=== PATIENT | female | born 1975 | race Caucasian/White ===

== ENCOUNTER 2023-07-16 12:10 | Emergency (ER) | payer OTHER, SELFPAY ==
[2023-07-16 12:14] VITALS: BP 112/75; PULSE 89; RESP 18; TEMP 36.6; O2SAT 100; BMI 21.5
--- NOTE | 2023-07-16 12:32 | ED.GENADULT ---
HPI - General Adult General Date Seen: 07/16/23 Chief complaint: Headache/Migraine Stated complaint: Headache Time Seen by Provider: 07/16/23 12:12 Source: patient Mode of arrival: ambulatory Limitations: no limitations History of Present Illness HPI narrative: Patient is a 47-year-old woman who return from [place] yesterday, she says she was in a city just [place] of [facility] for 12 days. Her is with her here but was not with her in [place]. She had onset of fever overnight with a temperature of 102? reported along with chills. She continues to report chills, this is her primary symptom at this time. She had a headache earlier although it is improved now. She says she also had some abdominal pain which was sharp and in her lower abdomen but this has resolved as well. She has not had any rashes, denies diarrhea. Has not had cough. Did do a COVID test up a time of onset of symptoms overnight which was negative. She has mild body aches but no severe joint pains or swelling. Not aware of any specific insect bites or stings, though she notes that there were a lot of mosquitos and no screens. No vomiting. She reports no significant medical history, denies drug alcohol or tobacco use. Related Data Home Medications Medication Instructions Recorded Confirmed levothyroxine 137 mcg tablet 137 mcg PO DAILY 07/16/23 07/16/23 Allergies Allergy/AdvReac Type Severity Reaction Status Date / Time amoxicillin Allergy Verified 07/16/23 12:16 Review of Systems Status of ROS: Reports: 10 or more systems reviewed and unremarkable except as noted in History and below PFSH [facility] Social History Smoking Status: Never smoker Do you use any of these nicotine containing products: None Second hand tobacco smoke exposure: No How often do you have a drink containing alcohol: 2-4 times a month How many standard drinks containing alcohol do you have on a typical day: 1 or 2 How often do you have six or more drinks on one occasion: Never AUDIT-C Alcohol total score: 2 Non-prescribed substance use: denies use service: No Exam Narrative: Exam Narrative: Vital signs as noted above. In general, an alert, nontoxic woman. Head: Normocephalic, atraumatic. Eyes: Pupils are equal reactive. Extraocular movements are full. Conjunctivae are normal. ENT: Mucous membranes are moist. Throat is normal. Neck: Supple without lymphadenopathy. Heart: Regular rate and rhythm. No murmur or rub. Lungs: Clear bilaterally. No increased work of breathing, crackles or wheezes. Abdomen: Soft and nontender. No organomegaly. Extremities: Well perfused. No edema. No calf tenderness. Pulses intact. Neurologic: Patient is alert and oriented to person and place. Speech is fluent. Face is symmetric. Moves all extremities equally. Affect: Normal. Skin: Warm and dry. Well perfused. No rash or jaundice. Const: Vital Signs, click to edit/add: Vital Signs - 24 hr 07/16/23 12:14 07/16/23 13:22 07/16/23 14:11 Temperature 97.8 F 99.7 F H Pulse Rate [Right Pulse Oximeter] 89 72 Respiratory Rate 18 20 Blood Pressure [Ri ght Upper Arm] 112/75 124/66 Pulse Oximetry 100 100 Oxygen Delivery Me thod Room Air Room Air Documenting provider has reviewed patient's vital signs: yes Course Course Hospital Course: Following initial evaluation, an IV was established and she was given a L of normal saline as well as Toradol 15 mg IV. She feels improved, did have a little bit of an elevated temp later in her stay of 99.7. Labs show a white blood cell count slightly low at 3.5, normal hemoglobin and normal platelet count. CRP very minimally elevated at 2.5, sed rate was normal. Electrolytes are unremarkable, potassium was 3.5. LFTs are entirely normal. UA is negative, 0-2 red cells and 0-2 white cells, few squames few bacteria. Our COVID and influenza here are negative. Diagnostic considerations include bacterial causes of fever such as urinary tract infection, pyelonephritis, pneumonia, meningitis. She does not have any respiratory complaints has clear lungs and normal O2 sats. She does not have any meningeal signs and headache is mild at this time. White blood cell count is depressed suggesting more likely a viral cause. COVID is negative but with only a few hours of symptoms discussed that that could be a false negative in it might be worthwhile to retest in a few days. Mosquito borne illnesses such as Zika, Chikunguya or Dengue are a consideration given her recent travel to [place], but she does not have any significant joint pains or rash and labs are not suggestive at this time. Discussed that there is no specific treatment for those illnesses that if she is not improving over the next 3-5 days testing for those could be entertained. Malaria does not appear to be endemic in the area of [place] where she was. She is nontoxic in appearance, I think it is reasonable to let her go. Blood cultures and urine culture are pending. Discussed that if she has worsening symptoms or new symptoms such as vomiting, significant abdominal pain, severe headache or neck pain, unusual rashes etcetera, she should return to the emergency department for repeat evaluation. In the meantime, I recommended Tylenol over ibuprofen given the remote possibility of Dengue. Primary care followup if fever persists beyond 3-5 days. Vital Signs Vital signs: Initial Vital Signs Temperature 97.8 F 07/16/23 12:14 Temperature Source Temporal Artery Scan 07/16/23 12:14 Pulse Rate 89 07/16/23 12:14 Respiratory Rate 18 07/16/23 12:14 Blood Pressure 112/75 07/16/23 12:14 Blood Pressure Mean 87 07/16/23 12:14 Blood Pressure Position Sitting 07/16/23 12:14 Pulse Oximetry 100 07/16/23 12:14 Oxygen Delivery Method Room Air 07/16/23 12:14 Vital Signs Temperature 97.8 F 07/16/23 12:14 Pulse Rate 89 07/16/23 12:14 Respiratory Rate 18 07/16/23 12:14 Blood Pressure 112/75 07/16/23 12:14 Pulse Oximetry 100 07/16/23 12:14 Oxygen Delivery Method Room Air 07/16/23 12:14 Temperature 99.7 F H 07/16/23 14:11 Pulse Rate 72 07/16/23 13:22 Respiratory Rate 20 07/16/23 13:22 Blood Pressure 124/66 07/16/23 13:22 Pulse Oximetry 100 07/16/23 13:22 Oxygen Delivery Method Room Air 07/16/23 13:22 Medical Decision Making Lab Data Labs: Lab Results 07/16/23 07/16/23 07/16/23 Range/Units 12:27 13:02 13:07 WBC 3.51 L (4.50-11.00) K/uL RBC 4.77 (4.00-5.20) m/uL Hgb 14.5 (12.0-16.0) gm/dL Hct 43.6 (33.0-51.0) % MCV 91 (80-100) fL MCH 30 (26-34) pg MCHC 33 (32-36) gm/dL RDW Coeff of Dejah 12.8 (11.5-15.5) % Plt Count 172 (140-440) K/uL Neut % (Auto) 75.2 H (42.0-72.0) % Lymph % (Auto) 14.5 L (20-44) % Scott % (Auto) 9.1 (0.0-11.0) % Eos % (Auto) 0.3 (0.0-7.0) % Baso % (Auto) 0.6 (0.0-3.0) % Neut # (Auto) 2.60 (1.7-7.0) K/uL Lymph # (Auto) 0.50 L (0.90-2.90) K/uL Scott # (Auto) 0.30 (0.00-0.90) K/UL Eos # (Auto) 0.00 (0.00-0.50) K/uL Baso # (Auto) 0.00 (0.00-0.30) K/uL Abs Immat Gran (auto) 0.00 (0.00-0.30) K/uL Imm/Tot Granulo (auto) 0.3 % Diff Slide Review Acceptable Review (Acceptable) ESR < 2 L (2-20) mm/hr Sodium 135 (135-149) mmol/L Potassium 3.5 L (3.6-5.1) mmol/L Chloride 103 (96-114) mmol/L Carbon Dioxide 23 (20-32) mmol/L BUN 9 (5-24) mg/dL Creatinine 1.0 (0.5-1.5) mg/dL Estimated Creat Clear 73.09 Estimated GFR 69 ml/min Glucose 85 (60-115) mg/dL Lactate 1.3 (0.5-1.9) mmol/L Calcium 9.0 (8.4-10.6) mg/dL Total Bilirubin 0.6 (0.1-1.5) mg/dL Direct Bilirubin 0.0 (0.0-0.5) mg/dL AST 35 (12-35) U/L ALT 28 (4-35) U/L Alkaline Phosphatase 63 (40-150) U/L C-Reactive Protein 2.5 H (0.5-1.0) mg/dL Total Protein 8.0 (6.0-8.3) g/dL Albumin 4.6 (3.3-5.0) g/dL Urine Color Yellow (Yellow) Urine Appearance Clear (Clear) Urine pH 6.0 (5.0-8.5) Ur Specific [place] 1.010 (1.000-1.030) Urine Protein 1+ A (Negative) Urine Glucose (UA) Negative (Negative) Urine Ketones Negative (Negative) Urine Blood Trace-lysed A (Negative) Urine Nitrite Negative (Negative) Urine Bilirubin Negative (Negative) Urine Urobilinogen 0.2 (0.2-1.0) Ur Leukocyte Esterase Negative (Negative) Urine RBC 0-2 (0-2) Urine WBC 0-2 (0-5) Ur Squamous Epith Cells Few (None-Few) Amorphous Sediment Few A (None) Urine Bacteria Few A (None) SARS-CoV-2 (PCR) Negative SARS-CoV-2 (Negative) Influenza Type A (PCR) Negative PCR FLU A (Negative) Influenza Type B (PCR) Negative PCR FLU B (Negative) RSV (PCR) Negative PCR RSV (Negative) Discharge Plan Discharge Clinical Impression: Fever Patient Disposition: Home, Self-Care Condition: Improved Instructions: Fever in Adults (ED) Additional Instructions: Tylenol as needed for fever and aches. Illness is likely viral, could consider repeat COVID testing in a few days. Testing for mosquito borne illnesses such as Zika or Chikunguya could be considered if not improving over the next week or so, though there is no specific treatment for these aside from supportive care. Your labs today do not suggest a probable bacterial cause for symptoms, but if you are feeling worse, develop new symptoms such as vomiting, significant abdominal pain, cough or difficulty breathing, unusual rash, return for re-evaluation. Primary care follow-up if fever persists beyond 5 days. Prescriptions: No Action levothyroxine 137 mcg tablet 137 mcg PO DAILY Follow Up/Referrals: Lily Cherry DO [Primary Care Provider] - Stand Alone Forms: [facility] Info Instructions
[2023-07-16] MEDS: 0.9 % SODIUM CHLORIDE 1000 ml 1,000 ML IV (13:09)
[2023-07-16 13:15] LABS: Lactate Sepsis w/Reflex* 1.3 mmol/L (0.5-1.9)
[2023-07-16] MEDS: ONDANSETRON 2 MG/ML inj 4 MG IVP (13:15)
[2023-07-16 13:22] VITALS: BP 124/66; PULSE 72; RESP 20; O2SAT 100
[2023-07-16 13:33] LABS: Basophils Percent Auto 0.6 % (0.0-3.0); Eosinophils Percent Auto 0.3 % (0.0-7.0); Hematocrit 43.6 % (33.0-51.0); Hemoglobin* 14.5 gm/dL (12.0-16.0); Immature Granulocytes Pct Auto 0.3 %; Lymphocytes Percent Auto 14.5 % (20-44); Mean Corpuscular HGB Conc 33 gm/dL (32-36); Mean Corpuscular Hemoglobin 30 pg (26-34); Mean Corpuscular Volume 91 fL (80-100); Monocytes Percent Auto 9.1 % (0.0-11.0); Neutrophils Percent Auto 75.2 % (42.0-72.0); Platelet Count* 172 K/uL (140-440); RDW Coefficient of Variation % 12.8 % (11.5-15.5); Red Blood Count 4.77 m/uL (4.00-5.20); White Blood Count* 3.51 K/uL (4.50-11.00)
[2023-07-16 13:34] LABS: Slide Review Reflex Yes
[2023-07-16 13:35] LABS: Albumin* 4.6 g/dL (3.3-5.0); Chloride* 103 mmol/L (96-114)
[2023-07-16 13:36] LABS: Potassium* 3.5 mmol/L (3.6-5.1); Sodium* 135 mmol/L (135-149)
[2023-07-16 13:38] LABS: Est. Creatinine Clearance* 73.09; Estimated Glomerular Filt Rate 69 ml/min
[2023-07-16 13:39] LABS: Alanine Aminotransferase* 28 U/L (4-35); Alkaline Phosphatase* 63 U/L (40-150); Aspartate Amino Transferase* 35 U/L (12-35); Bilirubin Total* 0.6 mg/dL (0.1-1.5); Blood Urea Nitrogen* 9 mg/dL (5-24); Carbon Dioxide* 23 mmol/L (20-32); Glucose* 85 mg/dL (60-115)
[2023-07-16 13:40] LABS: Slide Review Acceptable Review (Acceptable)
[2023-07-16 13:42] LABS: C Reactive Protein* 2.5 mg/dL (0.5-1.0)
[2023-07-16 13:56] LABS: Erythrocyte SedimentationRate* < 2 mm/hr (2-20)
[2023-07-16 14:05] LABS: PCR FLU A Negative PCR FLU A (Negative); PCR FLU B Negative PCR FLU B (Negative); PCR RSV Negative PCR RSV (Negative)
[2023-07-16] MEDS: KETOROLAC 15 MG/ML inj IVP (14:07)
[2023-07-16 14:11] VITALS: TEMP 37.6
[2023-07-16 14:13] LABS: SARS PCR* Negative SARS-CoV-2 (Negative)
[2023-07-16 14:24] LABS: Appearance Urine Clear (Clear); Bilirubin Urine Negative (Negative); Blood Urine Trace-lysed (Negative); Color Urine Yellow (Yellow); Glucose Urine Negative (Negative); Ketones Urine Negative (Negative); Leukocyte Esterase Urine Negative (Negative); Nitrite Urine Negative (Negative); Protein Urine 1+ (Negative); Urobilinogen Urine 0.2 (0.2-1.0)
[2023-07-16 14:28] LABS: RBC Urine 0-2 (0-2); WBC Urine 0-2 (0-5)
[2023-07-16 14:29] LABS: Amorphous Sediment Urine Few; Bacteria Urine Few; Squamous Epithelial Cell Urine Few (None-Few)
--- NOTE | 2023-07-16 15:03 | ED.NURSE ---
did call [facility] to make sure that her iv has been removed. message left to call back.
--- NOTE | 2023-07-16 15:49 | ED.NURSE ---
iv was removed.
== END 2023-07-16 14:56 | disposition home or self-care (01) ==
PROVIDERS: Emergency Provider Emergency Medicine; PCP Family Medicine
DX: R50.9 Fever, unspecified (principal)
CPT/HCPCS: 36415; 80048; 80076; 81001; 83605; 85025; 85651; 86140; 87040; 87086; 87631; 96374; 96375; 99283; 99284; J1885; J2405; J7030

== ENCOUNTER 2024-06-20 10:15 | Outpatient (CLI) | payer BC, SELFPAY | END 2024-06-20 10:16 | disposition home or self-care (01) | LOC: NFLDUCREF 10:16 | PROVIDERS: PCP Family Medicine; Visit Provider Nurse Practitioner Family | DX: G44.1 Vascular headache, not elsewhere classified (principal); S20.162A Insect bite (nonvenomous) of breast, left breast, initial encounter; W57.XXXA Bitten or stung by nonvenomous insect and other nonvenomous arthropods, initial encounter | CPT/HCPCS: 86618 ==

== ENCOUNTER 2024-07-29 15:36 | Emergency (ER) | payer OTHER, BC, SELFPAY ==
[2024-07-29 15:39] VITALS: BP 116/66; PULSE 80; RESP 18; TEMP 37.1; O2SAT 97; BMI 22.2
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
--- OUTSIDE RECORDS SUMMARY | 2024-07-29 16:25 | XMS_ITS ---
Author Organization [facility] Address [address] [place] [address] Care Team Providers Care Meat Market Manager Name Role Phone Unavailable Unavailable Unavailable Surgery Details Not on file Complications Check Surgery Details section. Procedure Estimated Blood Loss Check Surgery Details section. Procedure Findings Check Surgery Details section. Procedure Specimens Taken Check Surgery Details section.
--- OUTSIDE RECORDS SUMMARY | 2024-07-29 16:25 | XMS_ITS | Clinical Summary ---
Author Organization [facility] Address [address] [place] [address] Care Team Providers Care Civil Engineering Teacher Name Role Phone Elsewhere, Pcp Primary Care Provider Unavailabl e Source Comments Patient records contain information from all sites at [facility]. For routine questions regarding patient records, call [phone] during business hours, M-F 8:00 AM - 5:00 PM Central Time. Record requests for emergency care only can be directed to [phone] at any time.[facility] Allergies Active Allergy Reactions Criticality Noted Date Comments Amoxicillin GI intolerance 07/29/2009 Gluten Diarrhea 10/21/2014 Tetanus And Diphther. Tox (Pf) Other (see comments) Medium 07/07/2018 Fever, bodyaches, chills, nausea Medications Medication Sig Dispensed Refills Start Date End Date Status calcium carbonate-vitamin D3 500 mg-3.125 mcg (125 unit) per tablet Take 1 tablet by mouth daily. 03/12/2010 Active levothyroxine (SYNTHROID, LEVOTHROID) 137 mcg tablet Take 137 mcg by mouth. 01/26/2023 Active LORazepam (ATIVAN) 0.5 mg tablet Take 1 tablet up to twice daily as needed for anxiety. 12/10/2022 Active magnesium 30 mg tablet Magnesium tablet - patient unsure of strength. 08/03/2019 Active rizatriptan GAMMA FACILITIES OPERATOR (MAXALT-GAMMA FACILITIES OPERATOR) 10 mg disintegrating tablet DISSOLVE 1 TABLET ON THE TONGUE EVERY 2 HOURS NEEDED. MAX DOSE 3/24 HOURS AT MINIMUM 2 HOURS APART 05/10/2023 Active tiZANidine (ZANAFLEX) 4 mg tablet Take 4 mg by mouth every 8 (eight) hours as needed. 06/03/2023 Active VITAMIN B COMPLEX ORAL Take 1 capsule by mouth daily. 03/03/2019 Active zolpidem (AMBIEN) 5 mg tablet Take 2.5-5 mg by mouth at bedtime as needed. 08/03/2019 Active acetaminophen (TYLENOL) 500 mg tablet Take 500 mg by mouth every 6 (six) hours as needed for pain. Active Active Problems Problem Noted Date Diagnosed Date Fever Dengue 07/22/2023 Migraine With Aura Not Intra ctable Without Status Migrainosus 01/08/2021 Overview (07/19/2023): visual disturbance with flickering and wavy lines. right posterior eye typical for her Non Celiac Gluten Sensitivity 10/24/2014 Headache Unspecified 12/01/2013 Hypothyroidism 07/29/2009 Pain Epigastric 07/29/2009 Social History Tobacco Use Types Packs/Day Years Used Date Smoking Tobacco: Never Smokeless Tobacco: Never Tobacco Cessation:Counseling Given: Not Answered Alcohol Use Standard Drinks/Week Comments Yes 0 (1 standard drink = 0.6 oz pur e alcohol) ocassional Nutrition Answer Date Recorded Nutrition: EVOO Fat Source Unknown 09/07 Nutrition: Servings of Fruits/Vegetables per Day Not on file 09/07/2021 Dental Answer Date Recorded Dental: Regular Dentist Unknown 09/07/20 21 Sex and Gender Information Value Date Recorded Sex Assigned at Not on file Gender Identity Not on file Sexual Orientation Not on file Last Filed Vital Signs Vital Sign Reading Time Taken Comments Blood Pressure 105/66 07/24/2023 2:39 PM CDT Pulse 62 07/24/2023 2:39 PM CDT Temperature 36.2 ??C (97.2 ??F) 07/24/2023 2:39 PM CD T Respiratory Rate 16 07/24/2023 2:39 PM CDT Oxygen Saturation 98% 07/24/2023 2:39 PM CDT Inhaled Oxygen Concentration - - Weight 63.8 kg (140 lb 10.5 oz) 07/22/2023 7:36 PM CDT Height 177.8 cm (5' 10) 07/22/2023 7:36 PM CDT Body Mass Index 20.18 07/22/2023 7:36 PM CDT Plan of Treatment Health Maintenance Due Date Last Done Comments CT Colonography 1973 Cervical Cancer Screening 1973 Cologuard 1973 Colonoscopy 1973 Colorectal Cancer Screening 1973 FIT 1973 HIV Screening 1973 Hepatitis C Screening 1973 Mammogram 1973 Hepatitis B Vaccines (1 of 3 - 19+ 3-dose series) 1992 Zoster Vaccines (1 of 2) 2023 Depression Screening (Annual PHQ-2) 11/28/2023 Thyroid Stimulating Hormone (TSH) test for thyroid function 07/19/2024 07/19/2023, 01/01/2022, 04/20/2021, Additional history exists Influenza Vaccine (#1) 2024 , 12/10/2022, 08/11/2020 Lipid (Cholesterol) Screening 08/11/2025 08/11/2020 Fasting Glucose for Diabetes Screening 07/24/2026 07/24/2023, 07/23/2023, 07/22/2023, Additional history exists DTaP,Tdap,and Td Vaccines (3 - Td or Tdap) 06/12/2028 06/12/2018, 12/19/2007 COVID-19 Vaccine Completed 12/06/2023, , 11/04/2021, Additional history exists Pneumococcal vaccine (0-64 years) Aged Out No longer eligible based on patient's age to complete this topic Procedures Procedure Name Priority Date/Time Associated Diagnosis Comments COMPREHENSIVE METABOLIC PANEL, S/P Routine 07/24/2023 6:39 AM CDT THYROID-STIMULATING HORMONE-SENSITIVE (S-TSH) STAT 07/19/2023 9:37 PM CDT from Last 3 Months or Most Recently Relevant to Health Maintenance Results * (ABNORMAL) Comprehensive Metabolic Panel (07/24/2023 6:39 AM CDT) Potassium, S 3.8 3.6 - 5.2 mmol/L 07/24/2023 8:27 AM CDT DTL Sodium, S 140 135 - 145 mmol/L 07/24/2023 8:27 AM CDT DTL Chloride, S 104 98 - 107 mmol/L 07/24/2023 8:27 AM CDT DTL Bicarbonate, S 23 22 - 29 mmol/L 07/24/2023 8:27 AM CDT DTL Anion Gap 13 7 - 15 07/24/2023 8:27 AM CDT DTL BUN (Blood Urea Nitrogen), S 6 6 - 21 mg/dL 07/24/2023 8:27 AM CDT DTL Creatinine 0.68 0.59 - 1.04 mg/dL 07/24/2023 8:27 AM CDT DTL Estimated GFR (eGFR) >90 >=60 mL/min/BS A 07/24/2023 8:27 AM CDT DTL Comment: Estimated GFR calculated using the 2020 CKD_EPI creatinine equation. Calcium, Total, S 9.0 8.6 - 10.0 mg/dL 07/24/2023 8:27 AM CDT DTL Glucose, S 95 70 - 140 mg/dL 07/24/2023 8:27 AM CDT DTL Protein, Total, S 6.7 6.3 - 7.9 g/dL 07/24/2023 8:27 AM CDT DTL Albumin, S 3.7 3.5 - 5.0 g/dL 07/24/2023 8:27 AM CDT DTL Aspartate Aminotransferase (AST), S 377(H) 8 - 43 U/L 07/24/2023 8:27 AM CDT DTL Alkaline Phosphatase, S 65 35 - 104 U/L 07/24/2023 8:27 AM CDT DTL Alanine Aminotransferase (ALT), S 200(H) 7 - 45 U/L 07/24/2023 8:27 AM CDT DTL Bilirubin, Total, S 0.3 <=1.2 mg/dL 07/24/2023 8:27 AM CDT DTL Blood (Blood, Venous) 07/24/2023 6:39 AM CDT 07/24/2023 8:07 AM CDT Candi Levine M.D. LAB BLOOD ADD-ON [facility] [address] [place] [address], [place] DTL [facility] [address] [place] [address] * (ABNORMAL) S-TSH (Thyroid-Stimulating Hormone - Sensitive) (07/19/2023 9:37 PM CDT) TSH, Sensitive 0.2(L) 0.3 - 4.2 mIU/L 07/19/2023 10:56 PM CDT DTL Blood (Blood, Venous) 07/19/2023 9:37 PM CDT 07/19/2023 10:24 PM CDT Michael Rodriguez M.D. LAB BLOOD ADD-ON [facility] [address] [place] [address], [facility] [address] [place] [address] from Last 3 Months or Most Recently Relevant to Health Maintenance Advance Directives For more information, please contact: [phone] * Full Code (Latest Code Status on File) Date Activated Date Inactivated Comments 07/22/2023 9:11 PM 07/24/2023 5:37 PM Question Answer Comments Full Code: Discussed * Full Code Date Activated Date Inactivated Comments 07/22/2023 9:11 PM 07/22/2023 9:11 PM Question Answer Comments Full Code: Discussed Care Teams Civil Engineering Teacher Relationship Specialty Start Date End Date Elsewhere, Pcp PCP - General Internal Medicine 07/19/23
--- OUTSIDE RECORDS SUMMARY | 2024-07-29 16:25 | XMS_ITS | Clinical Summary ---
Author Organization [employer] [facility] Address [place], [place] [address] Care Team Providers Care Metal Turner Name Role Phone Lily Cherry DO Primary Care Provider [phone] Allergies Active Allergy Reactions Criticality Noted Date Comments Amoxicillin Stomach Upset 07/29/2009 Gluten Diarrhea 10/21/2014 Tetanus And Diphther. Tox (Pf) Fever Medium 07/07/2018 Fever, bodyaches, chills, nausea Medications Medication Sig Dispensed Refills Start Date End Date Status Calcium-Cholecalcif antonella, D3, (CALCIUM 500 + D, D3,) 500-125 mg-unit Tab Take by mouth. 0 0 Active b complex vitamins (VITAMIN B COMPLEX) capsule Take 1 capsule by mouth once daily. 0 9 Active Magnesium 30 mg tablet Magnesium tablet - patient unsure of strength. 0 9 Active zolpidem (AMBIEN) 5 mg tabletIndications:S hift work sleep disorder Take 0.5-1 tablets by mouth at bedtime if needed for Sleep. 10 tablet 2 9 Active LORazepam (ATIVAN) 0.5 mg tabIndications:Soci al anxiety disorder Take 1 tablet up to twice daily as needed for anxiety. 20 Tablet 3 Active acetaminophen (TYLENOL EXTRA STRGTH) 500 mg tablet Take 500 mg by mouth every 6 hours if needed. Active hydrOXYzine HCL (ATARAX) 25 mg tabletIndications:A nxiety Take 1 Tablet (25 mg) by mouth every 6 hours if needed for Itching. 25 Tablet 3 Active tiZANidine (ZANAFLEX) 4 mg tabletIndications:M igraine with aura and without status migrainosus, not intractable TAKE 1 TABLET(4 MG) BY MOUTH EVERY 8 HOURS NEEDED FOR MUSCLE SPASM 30 Tablet 4 Active Soy Isoflavone 40 mg tablet Take 1 Tablet (40 mg) by mouth two times daily. 4 Active multivitamin (MVI) tablet Take 1 Tablet by mouth once daily. 4 Active rhubarb root extract (ESTROVEN CMPLT MENOPAUSE RLF ORAL) Take by mouth. Active ondansetron (ZOFRAN ODT) 4 mg disintegrating tabletIndications:N ausea Place 1 Tablet (4 mg) on the tongue every 8 hours if needed for Nausea/Vomiti ng. 25 Tablet 4 Active levothyroxine (SYNTHROID) 137 mcg tabletIndications:A cquired hypothyroidism TAKE 1 TABLET(137 MCG) BY MOUTH BEFORE BREAKFAST 30 Tablet 4 Active rizatriptan (MAXALT PROCESSING TECHNICIAN) 10 mg disintegrating tabletIndications:M igraine with aura and without status migrainosus, not intractable DISSOLVE 1 TABLET ON THE TONGUE EVERY 2 HOURS NEEDED. MAX DOSE 3 PER 24 HOURS. GIVE AT LEAST 2 HOURS APART 10 Tablet 2 4 Active triamcinolone (ARISTOCORT) 0.1 % ointmentIndications :Bee sting, accidental or unintentional, initial encounter Apply to the affected area sparingly 2 -3 times a day x 14 days then as needed, pat on. Do not use on face, genitals or children. 30 g 3 07/11/20 24 Discontinued(*Me d complete/Regimen complete/Level of care change) rizatriptan (MAXALT PROCESSING TECHNICIAN) 10 mg disintegrating tabletIndications:M igraine with aura and without status migrainosus, not intractable DISSOLVE 1 TABLET ON THE TONGUE EVERY 2 HOURS NEEDED. MAX DOSE 3/24. 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 right posterior eye typical for her visual disturbance with flickering and wavy lines. right posterior eye typical for her visual disturbance with flickering and wavy lines. right posterior eye typical for her visual disturbance with flickering and wavy lines. right posterior eye typical for her Non-celiac gluten sensitivity 10/24/2014 Family history of brain aneurysm 12/01/2013 Overview: Mother (42, bled) and ?grandmother (42, stroke, not known if hemorrhagic/aneurysm but likely given age), had one MRA? That was normal 2004, told if she had aneurysm it would show up then, did not recommend repeat Chronic headaches 12/01/2013 Epigastric pain 07/29/2009 Unspecified hypothyroidism 07/29/2009 Resolved Problems Problem Noted Date Diagnosed Date Resolved Date , high-risk 06/14/2011 014 Encounters Date Type Department Care Team Description 07/11/2024 8:10 AM CDT Office Visit [facility] [address] [place] [address] Lily Cherry, Results (CT head results/) 07/11/2024 Travel 07/08/2024 Travel 07/05/2024 11:55 AM CDT Office Visit [facility] [address] [place] [address] Flores José PA Infectious Disease 07/05/2024 Travel 07/02/2024 Refill [facility] [address] [place] [address] Lily Cherry DO Refill Request (Rizatriptan) 07/02/2024 Refill [facility] [address] [place] [address] Lily Cherry DO Refill Request (Rizatriptan) 07/01/2024 Refill [facility] [address] [place] [address] Lily Cherry DO Refill Request (Levothyroxine) 06/27/2024 3:40 PM CDT Telemedicine [facility] [address] [place] [phone] Ria Virk, МАРИЯ Telehealth (on Doxy for Lyme, nausea, no vitals. ) 06/27/2024 Travel 06/26/2024 11:25 AM CDT Office Visit [facility] [address] [place] [address] Tc Rodriguez DO Results (Discuss results - needing to see a neurologist? ) 06/26/2024 Travel 06/18/2024 4:30 PM CDT Ancillary Procedure [facility] [address] [facility] [address] [place] [address] 06/18/2024 4:00 PM CDT Ancillary Procedure [facility] [address] [facility] [address] [place] [address] 06/18/2024 Travel 06/12/2024 1:00 PM CDT Office Visit [facility] [address] [facility] [address] [place] [address] Dwight García MD CV Vascular New (Ref from PCP (fam hx of aneurysms)) 06/12/2024 Travel from Last 3 Months Immunizations Name Administration Dates Next Due COVID-19 vaccine (Moderna 100mcg/0.5mL) PF MDV 01/21/2021,12/24/2020 COVID-19 vaccine (Pfizer-Bio NTech 30mcg/0.3mL) 12YO+ BIVALENT PF, MDV 12/10/2022 COVID-19 vaccine (Pfizer-BioNTech 30mcg/0.3mL) P F, MDV 11/04/2021 Influenza, IIV4 12/10/2022,08/11/2020 Tdap 06/12/2018,12/19/2007 Family History Medical History Relation Name Comments Cancer Father d92 pancreas ca ncer Cancer Mother cervical Other Mother brain anyrisum Other Sister 4 celiac 1/2 sist er Other Sister 5 alopecia, migra antoinette, 1/2 sister Psychiatric illness Sister 6 illness unknown at this time 1/2 sister Cancer-breast No Family History Relation Name Status Comments Father Mother Alive Sister 1 Alive Sister 2 Alive Sister 3 Alive Sister 4 Sister 5 Sister 6 Social History Tobacco Use Types Packs/Day Years Used Date Smoking Tobacco: Never Smokeless Tobacco: Never Tobacco Cessation:Counseling Given: Yes Alcohol Use Standard Drinks/Week Comments Yes 0 (1 standard drink = 0.6 oz pur e alcohol) 1-2 drinks weekly PHQ-2 Answer Date Recorded PHQ-2 TOTAL SCORE 0 12/10/2022 Social Connections Answer Date Recorded Frequency of Communication with Friends and Fami ly 0 03/30/2024 Financial Resource Strain Answer Date R ecorded Difficulty of Paying Living Expenses 3 03/30/2024 Difficulty of Paying Living Expenses Not on file 03/30/2024 Food Insecurity Answer Date Recorded Worried About Running Out of Food in the Last Ye ar 1 03/30/2024 Transportation Needs Answer Date Record ed Lack of Transportation (Medical) 1 03/30/2024 Housing Stability Answer Date Recorded Unable to Pay for Housing in the Last Year 1 03/30/2024 Sex and Gender Information Value Date Recorded Sex Assigned at Not on file Gender Identity Not on file Sexual Orientation Not on file Obstetrics History Para Term AB IAB SAB Ectopic Multiple Livin g Live Births 3 2 2 0 0 0 0 0 0 0 Date Outcome GA Total Labor Labor/2nd/3rd Weight Sex Type Anes PTL Jeanne A1 A5 Name Clin Term Term Comments:System Genera kathryn. Please review and update details. Last Filed Vital Signs Vital Sign Reading Time Taken Comments Blood Pressure 106/68 07/11/2024 8:11 AM CDT Pulse 73 07/11/2024 8:11 AM CDT Temperature 36.7 ??C (98 ??F) 03/30/2024 2:20 PM CDT Respiratory Rate 16 09/11/2022 1:11 PM CDT Oxygen Saturation 96% 07/11/2024 8:11 AM CDT Inhaled Oxygen Concentration - - Weight 67.1 kg (148 lb) 07/11/2024 8:11 AM CDT Height 176.5 cm (5' 9.5) 06/12/2024 12:49 PM CD T Body Mass Index 21.54 06/12/2024 12:49 PM CDT Plan of Treatment Upcoming Encounters Date Type Department Care Team (Late st Contact Info) Description 08/10/2024 2:15 PM CDT Office Visit [facility] [address] [place] [address] Lily Cherry DO [address] [place] [address] 09/25/2024 8:30 AM CDT Office Visit [facility] [phone] Arben Sanders, PhD, LP [phone] Health Maintenance Due Date Last Done Comments Hepatitis C screening for age 18-79 1991 Colonoscopy through age 75 2018 Zoster (shingles) series for age 50+ (1 of 2) 2023 Depression screening for age 12+ 12/10/2023 12/10/2022, 01/01/2022, 08/12/2020, Additional history exists Mammogram for age 45-75 06/01/2024 06/01/2023, 03/19 Influenza for age 50-64 07/29/2024 12/10/2022, 08/11 BMI (ht and wt on same day) for age 18+ 06/12/2025 06/12/2024, 01/01/2022, 06/04/2021, Additional history exists Lipids for age 45-75 08/11/2025 08/11/2020, 10/15/20 15 Pap test for age 21-65 08/11/2025 0, 08/11/2020, 01/22/2011 Tetanus booster 06/12/2028 06/12/2018, 12/19/2007 HIV for age 15-65 Completed 01/22/2011 Tdap Completed 06/12/2018, 12/19/2007 COVID-19 vaccine series Completed 12/06/19, 12/10/2022, 11/04/2021, Additional history exists Pneumococcal series for age 6-64 Aged Out No longer eligible based on patient's age to complete this topic Procedures Procedure Name Priority Date/Time Associated Diagnosis Comments CT CHEST ABDOMEN PELVIS W Routine 06/18/2024 4:47 PM CDT Family hx of aortic aneurysm Family history of brain aneurysm CT ANGIO HEAD AND NECK CAROTID Routine 06/18/2024 4:46 PM CDT Family hx of aortic aneurysm Family history of brain aneurysm XR MAMMO BILAT SCREENING Routine 06/01/2023 8:16 AM CDT Visit for screening mammogram LIPID PANEL W REFLEX MEASURED LDL Routine 08/11/2020 12:27 PM CDT Screening cholesterol level MANUFACTURING OPERATIONS MANAGER THIN PREP PAP SCREEN IMAGED Routine 08/11/2020 11:30 AM CDT Screening for malignant neoplasm of cervix ANTI HIV 1/2 Routine 01/22/2011 2:55 PM ECOSYSTEM ECOLOGY PROFESSOR Supervision of other normal from Last 3 Months or Most Recently Relevant to Health Maintenance Results * CT CHEST ABDOMEN PELVIS W (06/18/2024 4:47 PM CDT) Anatomical Region Laterality Modality Abdomen, Pelvis, AORTA, LIVER, SPLEEN, CHEST Computed Tomography 06/20/2024 10:1 1 AM CDT Impressions 06/20/2024 10:11 AM CDT 1. Normal caliber aorta. No aneurysm. 2. Normal chest abdomen pelvis CT. Please note that all CT scans at this facility use dose modulation, iterative reconstruction, and/or weight-based dosing when appropriate to reduce radiation dose to as low as reasonably achievable. Dictated by Aric Dickens MD @ 06/20/2024 10:11:41 AM (Electronically Signed) Narrative 06/20/2024 10:11 AM CDT For Patients: ??As a result of the Cures Act, medical imaging exams and procedure reports are released immediately into your electronic medical record. ??You may view this report before your referring provider. ??If you have questions, please contact your health care provider. INDICATION: Family history of aortic aneurysm, family history of brain aneurysm TECHNIQUE: CT chest, abdomen and pelvis acquired with 50 mL Omnipaque 350 IV contrast. COMPARISON: None. FINDINGS: CHEST: Cardiovascular structures: Heart size is normal. Thoracic aorta and main pulmonary artery are normal in caliber. ? Mediastinum and lizzie: No mass or adenopathy. ?? Lungs and pleura: Lungs and pleural spaces are clear. No suspicious nodules, infiltrates, or effusions. ?? Chest wall and axilla: No mass or adenopathy. ?? Bones: No suspicious bone lesions. ??Unremarkable for age. ?? ABDOMEN AND PELVIS: Liver: Unremarkable. ?? Gallbladder and bile ducts: Unremarkable. ?? Pancreas: Unremarkable. ?? Spleen: Unremarkable. ?? Adrenal glands: Unremarkable. ?? Kidneys: Unremarkable. ?? GI tract: Unremarkable. ?? Vascular structures: Minimal aortic atherosclerosis. No aortic aneurysm. Patent mesenteric arteries Lymph nodes: Unremarkable. ?? Miscellaneous: Unremarkable. ??No free air or significant free fluid. ?? Pelvic Organs: Unremarkable. ?? Bones: No suspicious bone lesions. ??Unremarkable for age. ?? Procedure Note Aric Dickens MD - 06/20/2024 For Patients: As a result of the Cures Act, medical imagingexams and procedure reports are released immediately into your electronicmedical record. You may view this report before your referring provider.If you have questions, please contact your health care provider. INDICATION: Family history of aortic aneurysm, family history of brain aneurysm TECHNIQUE: CT chest, abdomen and pelvis acquired with 50 mL Omnipaque 350 IVcontrast. COMPARISON: None. FINDINGS: CHEST: Cardiovascular structures: Heart size is normal. Thoracic aorta and mainpulmonary artery are normal in caliber. Mediastinum and lizzie: No mass or adenopathy. Lungs and pleura: Lungs and pleural spaces are clear. No suspiciousnodules, infiltrates, or effusions. Chest wall and axilla: No mass or adenopathy. Bones: No suspicious bone lesions. Unremarkable for age. ABDOMEN AND PELVIS: Liver: Unremarkable. Gallbladder and bile ducts: Unremarkable. Pancreas: Unremarkable. Spleen: Unremarkable. Adrenal glands: Unremarkable. Kidneys: Unremarkable. GI tract: Unremarkable. Vascular structures: Minimal aortic atherosclerosis. No aortic aneurysm.Patent mesenteric arteries Lymph nodes: Unremarkable. Miscellaneous: Unremarkable. No free air or significant free fluid. Pelvic Organs: Unremarkable. Bones: No suspicious bone lesions. Unremarkable for age. IMPRESSION: 1. Normal caliber aorta. No aneurysm. 2. Normal chest abdomen pelvis CT. Please note that all CT scans at this facility use dose modulation,iterative reconstruction, and/or weight-based dosing when appropriate toreduce radiation dose to as low as reasonably achievable. Dictated by Aric Dickens MD @ 06/20/2024 10:11:41 AM (Electronically Signed) Dwight García MD CT * CT ANGIO HEAD AND NECK CAROTID (06/18/2024 4:46 PM CDT) Anatomical Region Laterality Modality BRAIN, NECK Computed Tomogra phy 06/19/2024 9:21 AM CDT Addenda Addendum by Lul Bravo MD on 06/19/2024 11:14 AM CDT For Patients: ??As a result of the Cures Act, medical imaging exams and procedure reports are released immediately into your electronic medical record. ??You may view this report before your referring provider. ?? If you have questions, please contact your health care provider. CT HEAD DATE: 06/18/2024 CLINICAL HISTORY: Patient with family history of brain aneurysms. TECHNIQUE: Standard CT scanning of the head was performed. COMPARISON: None. FINDINGS: There is no intracranial hemorrhage. There is no territorial infarction. There are mild microangiopathic changes. There is diffuse parenchymal volume loss. There is no mass effect or midline shift. The calvarium is unremarkable. The orbits are unremarkable. The paranasal sinuses are unremarkable. The mastoid air cells are unremarkable. The soft tissues are unremarkable. IMPRESSION: 1. No intracranial hemorrhage or territorial infarction. 2. Mild microangiopathic changes and diffuse parenchymal volume loss. Please note that all CT scans at this facility use dose modulation, iterative reconstruction, and/or weight-based dosing when appropriate to reduce radiation dose to as low as reasonably achievable. Dictated by: Lul Bravo MD @ 06/19/2024 11:14:50 (Electronically Signed) Addendum by Lul Bravo MD on 06/19/2024 10:57 AM CDT For Patients: ??As a result of the Cures Act, medical imaging exams and procedure reports are released immediately into your electronic medical record. ??You may view this report before your referring provider. ?? If you have questions, please contact your health care provider. DATE: 06/18/2024 CLINICAL HISTORY: Patient with family history of brain aneurysms. TECHNIQUE: Standard helical CT image acquisition through the intracranial circulation following intravenous administration of contrast material with bolus tracking. 2D and 3D MIP images for post-processing were performed and interpreted on an independent workstation and 3D images were permanently archived. COMPARISON: CT same day. FINDINGS: There is no cerebral aneurysm or large vessel occlusion. The right internal carotid artery is normal. The right middle cerebral artery and its branches are normal. The right anterior cerebral artery and its branches are normal. The left internal carotid artery is normal. The left middle cerebral artery and its branches are normal. The left anterior cerebral artery and its branches are normal. The anterior communicating artery is well visualized and appears normal. The right vertebral artery and PICA are normal. The left vertebral artery and PICA are normal. The right vertebral artery is dominant. The basilar artery is patent and appears normal. The right posterior cerebral artery is normal. The left posterior cerebral artery is normal. The visualized venous structures are patent. IMPRESSION: Patent proximal intracranial vasculature without intracranial aneurysms. Please note that all CT scans at this facility use dose modulation, iterative reconstruction, and/or weight-based dosing when appropriate to reduce radiation dose to as low as reasonably achievable. Dictated by Lul Bravo MD @ 06/19/2024 10:57:19 AM (Electronically Signed) Impressions 06/19/2024 10:53 AM CDT Patent cervical vasculature. Please note that all CT scans at this facility use dose modulation, iterative reconstruction, and/or weight-based dosing when appropriate to reduce radiation dose to as low as reasonably achievable. Dictated by Lul Bravo MD @ 06/19/2024 10:53:47 AM (Electronically Signed) Narrative 06/19/2024 10:53 AM CDT For Patients: ??As a result of the Cures Act, medical imaging exams and procedure reports are released immediately into your electronic medical record. ??You may view this report before your referring provider. ??If you have questions, please contact your health care provider. DATE: 06/18/2024 CLINICAL HISTORY: Patient with family history of brain aneurysms. TECHNIQUE: Standard helical CT image acquisition of the neck up to the skull base after bolus intravenous contrast enhancement. 2D and 3D MIP images for post-processing were performed and interpreted on an independent workstation and 3D images were permanently archived. COMPARISON: CT same day. FINDINGS: The origins of the great vessels from the aortic arch are patent. The origin of the right vertebral artery is patent. The origin of the left vertebral artery is patent. The common carotid arteries are patent. There is no stenosis at the origin of the right internal carotid artery. There is no stenosis at the origin of the left internal carotid artery. The rest of the cervical segments of the internal carotid arteries are patent up to the skull base. The right vertebral artery is dominant. The cervical segments of the vertebral arteries are patent up to the skull base. The visualized lung apices are unremarkable. The thyroid gland is unremarkable. The soft tissues of the neck are unremarkable. There are degenerative changes in the cervical spine. Procedure Note Lul Bravo MD - 06/19/2024 For Patients: As a result of the Cures Act, medical imagingexams and procedure reports are released immediately into your electronicmedical record. You may view this report before your referring provider.If you have questions, please contact your health care provider. DATE: 06/18/2024 CLINICAL HISTORY: Patient with family history of brain aneurysms. TECHNIQUE: Standard helical CT image acquisition of the neck up to the skull baseafter bolus intravenous contrast enhancement. 2D and 3D MIP images forpost-processing were performed and interpreted on an independentworkstation and 3D images were permanently archived. COMPARISON: CT same day. FINDINGS: The origins of the great vessels from the aortic arch are patent. Theorigin of the right vertebral artery is patent. The origin of the leftvertebral artery is patent. The common carotid arteries are patent. There is no stenosis at the origin of the right internal carotid artery. There is no stenosis at the origin of the left internal carotid artery. The rest of the cervical segments of the internal carotid arteries arepatent up to the skull base. The right vertebral artery is dominant. The cervical segments of thevertebral arteries are patent up to the skull base. The visualized lung apices are unremarkable. The thyroid gland is unremarkable. The soft tissues of the neck are unremarkable. There are degenerative changes in the cervical spine. IMPRESSION: Patent cervical vasculature. Please note that all CT scans at this facility use dose modulation,iterative reconstruction, and/or weight-based dosing when appropriate toreduce radiation dose to as low as reasonably achievable. Dictated by Lul Bravo MD @ 06/19/2024 10:53:47 AM (Electronically Signed) Dwight García MD CT * XR MAMMO BILAT SCREENING (06/01/2023 8:16 AM CDT) Anatomical Region Laterality Modality BREASTS, Breast Left, Breast Right Bilateral Mammography Impressions 06/01/2023 3:56 PM CDT ??There is no radiographic evidence for malignancy. ??Recommend annual mammograms. MAMMOGRAM ASSESSMENT: ??ACR 1 Negative PATIENTS: You will also receive a letter with your examination results in an easy to read format. ??If you have questions about your results, please contact your referring provider. Narrative 06/01/2023 3:56 PM CDT For Patients: As a result of the Century Cures Act, medical imaging exams and procedure reports are released immediately into your electronic medical record. You may view this report before your referring provider. If you have questions, please contact your health care provider. XR MAMMO BILAT SCREENING [[id number]] CLINICAL HISTORY: ??This is an asymptomatic 47 y.o. patient. INDICATION FOR EXAM: Mammogram Screening. TECHNIQUE: CC & MLO views were obtained. ??This study was evaluated with the assistance of Computer-Aided Detection. COMPARISON FILM: Yes 03/19/22 [place] ?? FINDINGS: ??The breasts are heterogeneously dense, which may obscure small masses. There are no dominant masses, suspicious micro calcifications or areas of architectural distortion. Lily Cherry DO MAMMO * LIPID PANEL W REFLEX MEASURED LDL (08/11/2020 12:27 PM CDT) CHOLESTEROL,TOTAL 181 100 - 199 mg/dL 08/11/2020 9:21 PM CDT [facility] TRIGLYCERIDES 72 <150 mg/dL 08/11/2020 9:21 PM CDT [facility] HDL CHOLESTEROL 63 >40 mg/dL 0 9:21 PM CDT [facility] NON-HDL CHOLESTEROL 118 <145 mg/dl 08/11/2020 9:21 PM CDT [facility] CHOL/HDL RATIO 2.87 <4.50 08/11/2020 9:21 PM CDT [facility] LDL CHOLESTEROL 104 <=130 mg/dL 08/11/2020 9:21 PM CDT [facility] PROVIDER ORDERED STATUS RANDOM 08/11/2020 9:21 PM CDT [facility] Blood BLOOD SPECIMEN / Unknown Venipuncture / Unknown 08/11/2020 12:27 PM CDT 08/11/2020 12:27 PM CDT Lily Cherry DO CHEMISTRY [facility] [address] [place] [address], * MANUFACTURING OPERATIONS MANAGER THIN PREP PAP SCREEN IMAGED [[id number]] (08/11/2020 11:30 AM CDT) Case Report Gynecologic Cytology Report ? Case: [id number] ? Authorizing Provider: ??Lily Cherry, DO ? Collected: ? 08/11/2020 1130 ? Ordering Location: ? [facility] ?? Received: ?08/11/2020 1236 ? Clinic ? First Screen: ?Shun Rodriguez ? Specimen: ?MANUFACTURING OPERATIONS MANAGER ThinPrep Vial Screening, Cervical ? 08/26/2020 8:05 AM CDT [facility] LABORATORY INTERPRETATION /RESULT NEGATIVE FOR INTRAEPITHELIAL LESION OR MALIGNANCY (NIL) (none) 08/26/2020 8:05 AM CDT [facility] IMEN ADEQUACY Satisfactory for evaluation Endocervical component present Scant cellularity 08/26/2020 8:05 AM CDT [facility] EN[facility]AL LABOR[facility] HPV REQUEST HPV and PAP 08/26/2020 8:05 AM CDT [facility] Date of LMP 08/05/20 08/26/2020 8:05 AM CDT [facility] Last Pap Date 201008/26/2020 8:05 AM CDT [facility] Last Pap Result NIL 08/26/2020 8:05 AM CDT [facility] Abnormal Pap or [place] Bx in last 5 years No 08/26/2020 8:05 AM CDT [facility] Menstrual Status Regular Periods 08/26/2020 8:05 AM T [facility] [place] Bx Done Today No 08/26/2020 8:05 AM T [facility] Additional Information None given 08/26/2020 8:05 AM CDT [facility] Comment: Cytology is screened at [facility] - [address], [place] [address] and [facility] - [address] [place] [address], [place] [address] and [facility] - [address] [place] [address] Interpreted at [facility] - [address], [place] [address] Automated Review Failed 08/26/2020 8:05 AM T [facility] Comment:Processing failed, m anual screening required. ThinPrep Imaging System, [employer] 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 It is used primarily to screen for squamous cancers and precursor lesions. Published studies have shown that it is subject to both false negative and false positive results. The pap test should not be used as the sole means to diagnose or exclude pre-malignant and malignant lesions. 08/26/2020 8:05 AM T [facility] Other (Cervical) Non-Blood / Unknown 08/11/2020 11:30 AM CDT 08/11/2020 12:36 PM CDT Lily Cherry DO PATHOLOGY/CYTOLOGY [facility] [address] [id number], [place] * ANTI HIV 1/2 (01/22/2011 2:55 PM [employer] ECOLOGY PROFESSOR) ANTI HIV 1/2 Non-reacti ve [facility] Blood specimen (specimen) BLOOD SPECIMEN / Unknown 01/22/2011 2:55 PM [employer] ECOLOGY PROFESSOR 01/22/2011 2:43 PM [employer] ECOLOGY PROFESSOR Lily Cherry DO SEND OUTS [facility]ORY INTERNAL ZIP [id number] [address] from Last 3 Months or Most Recently Relevant to Health Maintenance Care Teams Metal Turner Relationship Specialty Start Date End Date Lily Cherry DO PCP - General 04/15/10
--- OUTSIDE RECORDS SUMMARY | 2024-07-29 16:25 | XMS_ITS | Referral Summary ---
Author Organization [facility] Address [address] [place] [address] Care Team Providers Care Corrugator Supervisor Name Role Phone Elsewhere, Pcp Primary Care Provider Unavailabl e Source Comments Patient records contain information from all sites at [facility]. For routine questions regarding patient records, call [phone] during business hours, M-F 8:00 AM - 5:00 PM Central Time. Record requests for emergency care only can be directed to [phone] at any time.[facility] Allergies Active Allergy Reactions Criticality Noted Date [...] patient unsure of strength. 08/03/2019 Active rizatriptan DEXTRINE MIXER (MAXALT-DEXTRINE MIXER) 10 mg disintegrating tablet DISSOLVE 1 TABLET [...] 07/22/2023 7:36 PM CDT Plan of Treatment Not on file Procedures Procedure Name Priority Date/Time Associated Diagnosis Comments COMPREHENSIVE METABOLIC PANEL, S/P Routine 07/24/2023 6:39 AM CDT THYROID-STIMULATING HORMONE-SENSITIVE (S-TSH) STAT 07/19/2023 9:37 PM CDT from Last 3 Months or Most Recently Relevant to Health Maintenance Results * (ABNORMAL) Comprehensive Metabolic Panel (07/24/2023 6:39 AM CDT) [facility] Potassium, S 3.8 3.6 - 5.2 mmol/L [...] CDT Candi Levine M.D. LAB BLOOD ADD-ON [facility] [address] [place] [address], [facility] [address] [place] [address] * (ABNORMAL) S-TSH (Thyroid-Stimulating Hormone - Sensitive) (07/19/2023 9:37 PM CDT) Pathologist [facility] TSH, Sensitive 0.2(L) 0.3 - 4.2 mIU/L 07/19/2023 10:56 PM CDT [facility] Blood (Blood, Venous) 07/19/2023 9:37 PM CDT 07/19/2023 10:24 PM CDT Michael Rodriguez M.D. LAB BLOOD ADD-ON [facility] [address] [place] [address], [facility] [address] [place] [address] from Last 3 Months or Most Recently Relevant to Health Maintenance Advance Directives For more information, please contact: [phone] * Full Code (Latest Code Status on File) Date Activated Date Inactivated Comments 07/22/2023 9:11 PM 07/24/2023 5:37 PM Question Answer Comments Full Code: Discussed * Full Code Date Activated Date Inactivated Comments 07/22/2023 9:11 PM 07/22/2023 9:11 PM Question Answer Comments Full Code: Discussed Care Teams Corrugator Supervisor Relationship Specialty Start Date End Date Elsewhere, Pcp PCP - General Internal Medicine 07/19/23
== END 2024-07-29 16:53 | disposition home or self-care (01) ==
PROVIDERS: Emergency Provider Emergency Medicine Emergency Medical Services; PCP Family Medicine
DX: S13.4XXA Sprain of ligaments of cervical spine, initial encounter (principal); V43.52XA Car driver injured in collision with other type car in traffic accident, initial encounter
CPT/HCPCS: 99283; 99284